=== PATIENT | male | born 1970 | race Caucasian/White ===

== ENCOUNTER 2018-03-31 08:00 | Inpatient (IN) | payer OTHER ==
[2018-04-27 15:07] VITALS: BMI 24.9
[2018-04-28] MEDS ORDERED: GENTAMICIN SO4 80 MG/2 ML VIAL ONE (07:34)
[2018-04-28] MEDS ORDERED: BUPIVACAINE HCL/PF 0.5% (5MG/ML) 10 ML VIAL ONE (07:35)
--- NOTE | 2018-04-28 07:53 | HP ---
History & Physical Update - History History: No Change - Physical Physical: No Change - Assessment Assessment: No Change - Plan Plan: No Change (no change since visit on 04/15/18)
[2018-04-28] MEDS ORDERED: MIDAZOLAM HCL 2 MG/2 ML SINGLE DOSE VIAL ONE ×3 (07:58→13:56)
[2018-04-28] MEDS ORDERED: ROCURONIUM BROMIDE 50 MG/5 ML VIAL ONE ×3 (07:58→11:39)
[2018-04-28] MEDS ORDERED: PROPOFOL 20 ML ONE (07:58)
[2018-04-28] MEDS ORDERED: LIDOCAINE HCL/PF 2% SDV 5ML VIAL ONE (08:00)
[2018-04-28] MEDS ORDERED: THROMBIN (BOVINE) 20,000 UNIT VIAL TP ONE (08:01)
[2018-04-28] MEDS ORDERED: GENTAMICIN SO4 80 MG/2 ML VIAL IVPB ONE (08:30)
[2018-04-28] MEDS ORDERED: ceFAZolin SODIUM 1 GM VIAL ONE ×3 (08:39→20:07)
[2018-04-28] MEDS ORDERED: VANCOMYCIN 1,000 MG VIAL (RESTRICTED TO ID ONLY) ONE (08:39)
[2018-04-28] MEDS ORDERED: ceFAZolin SODIUM 1 GM VIAL IVPB ONE ×2 (08:40→11:59)
[2018-04-28] MEDS ORDERED: LIDOCAINE 1%/EPI 1:100000 (50 ML MULTI DOSE VIAL) INF ONE (08:42)
[2018-04-28] MEDS ORDERED: VANCOMYCIN 1,000 MG VIAL (RESTRICTED TO ID ONLY) IVPB ONE (08:42)
[2018-04-28] MEDS ORDERED: ONDANSETRON 4 MG/2 ML VIAL ONE ×2 (08:56→12:30)
[2018-04-28] MEDS ORDERED: DEXAMETHASONE SOD PHOSPHATE 4 MG/1 ML VIAL ONE ×2 (08:56→12:30)
[2018-04-28] MEDS ORDERED: BACITRACIN 15 GM TUBE TOPICAL OINTMENT ONE (10:54)
[2018-04-28] MEDS ORDERED: ACETAMINOPHEN INJECTION 100 ML IVPB ONE (11:36)
[2018-04-28] MEDS ORDERED: BACITRACIN 50,000 UNITS VIAL TP ONE (12:25)
[2018-04-28] MEDS ORDERED: GLYCOPYRROLATE 0.2 MG/1 ML VIAL ONE (12:29)
[2018-04-28] MEDS ORDERED: NEOSTIGMINE METHYLSULFATE 0.5 MG/ML - 10 ML MDV ONE (13:10)
[2018-04-28] MEDS ORDERED: METOPROLOL TARTRATE 5 MG/5 ML VIAL ONE (13:56)
[2018-04-28] MEDS ORDERED: ONDANSETRON 4 MG/2 ML VIAL IVPUSH PRN (14:05)
[2018-04-28] MEDS ORDERED: DEXAMETHASONE SOD PHOSPHATE 4 MG/1 ML VIAL IVPUSH PRN (14:05)
[2018-04-28] MEDS ORDERED: PROMETHAZINE HCL 25 MG/1 ML VIAL IVPB PRN (14:05)
[2018-04-28] MEDS ORDERED: HYDROmorphone *PCA* 10MG/50ML DISP.SYRIN PCA ONE (14:08)
[2018-04-28] MEDS ORDERED: LACTATED RINGERS SOLUTION 1,000 ML IV SCH (14:15)
[2018-04-28] MEDS ORDERED: diphenhydrAMINE HCL 25 MG CAPSULE (FP) PO PRN (14:21)
[2018-04-28] MEDS: HYDROmorphone *PCA* 10MG/50ML DISP.SYRIN PCA SCH (14:35)
[2018-04-28] MEDS: LACTATED RINGERS SOLUTION 1,000 ML/1,000 ML INFUS.BAG IV SCH (15:00)
--- NOTE | 2018-04-28 15:37 | OP ---
Operative Note - Note: Operative Date: 04/28/18 Pre-Operative Diagnosis: cervical radiculopathy Operation: C3-C4 ACDF, C5-C6 corpectomies with anterior plating and anabaptism of lordosis with peek cage Post-Operative Diagnosis: Same as Pre-op Surgeon: Arturo Mccrary Tower Truck Driver: Luly Cano Anesthesiologist/GRAPHIC EDITOR: Dale Patino Anesthesia: General Estimated Blood Loss (mls): 350 Drains & Tubes with Location: j/p drain right neck Fluid Volume Replaced (mls): 1,200 Operative Report Dictated: Yes
--- NOTE | 2018-04-28 15:42 | SURG ---
Surgery Logistics/Shipper Note Logistics/Shipper: Luly Cano PA-C Date of Service: 04/28/18 Diagnosis: cervical radiculopathy Procedure: C3-C4 ACDF, C5-C6 corpectomies with anterior plating and uatsdin of lordosis with peek cage I was present for the entirety of the operative procedure. For further detail, please refer to operative report. Visit type - Case Type Case Type: Scheduled - Emergency Emergency Visit: No - New patient This patient is new to me today: Yes Date on this admission: 04/28/18
--- NOTE | 2018-04-28 15:43 | OP ---
Operative Note - Note: Operative Date: 04/28/18 Pre-Operative Diagnosis: cervical radiculopathy Operation: C2-C7 laminectomies with muslim of lordosis and posterior fusion with lateral mass intrumentation Post-Operative Diagnosis: Same as Pre-op Surgeon: Arturo Mccrary Manager Ccu: Luly Cano Anesthesiologist/PIT LABORER: Dale Patino Anesthesia: General Estimated Blood Loss (mls): 450 Drains & Tubes with Location: j/p right paravetebral c spine Fluid Volume Replaced (mls): 1,200 Operative Report Dictated: Yes
--- NOTE | 2018-04-28 15:46 | SURG ---
Surgery Assurance Sourcing Manager Note Assurance Sourcing Manager: Luly Cano PA-C Date of Service: 04/28/18 Diagnosis: cervical radiculopathy Procedure: C2-C7 laminectomies with amish of lordosis and posterior fusion with lateral mass intrumentation I was present for the entirety of the operative procedure. For further detail, please refer to operative report. Visit type - Case Type Case Type: Scheduled - Emergency Emergency Visit: No - New patient This patient is new to me today: Yes Date on this admission: 04/28/18
[2018-04-28] MEDS: NICOTINE 21 MG/24 HOURS TOPICAL PATCH TD SCH (17:49)
[2018-04-28] MEDS ORDERED: DEXTROSE 5%-WATER - 50 ML IVPB ONE (20:08)
[2018-04-28] MEDS: CEFAZOLIN 1 GM in DEXTROSE 5%-WATER - 50 ML IVPB SCH (20:19)
[2018-04-28] MEDS: DOCUSATE SODIUM 100 MG CAPSULE (FP) PO SCH (21:44)
[2018-04-28] MEDS: HEPARIN NA (PORCINE) 5,000 UNITS/ML 1ML VIAL SQ SCH (21:44)
[2018-04-28] MEDS ORDERED: ATORVASTATIN CA 20 MG TABLET (FP) PO SCH (22:00)
[2018-04-28] MEDS ORDERED: PATIENT'S OWN MEDICATION (NON-FORMULARY) (Metformin Hcl [Metformin Hcl Er] 500 MG) PO SCH (22:00)
[2018-04-29] MEDS: LACTATED RINGERS SOLUTION 1,000 ML/1,000 ML INFUS.BAG IV SCH (00:56)
[2018-04-29] MEDS ORDERED: HYDROmorphone *PCA* 10MG/50ML DISP.SYRIN PCA ONE (01:08)
[2018-04-29] MEDS: HYDROmorphone *PCA* 10MG/50ML DISP.SYRIN PCA SCH (01:43)
[2018-04-29] MEDS ORDERED: ceFAZolin SODIUM 1 GM VIAL ONE ×2 (03:42→11:45)
[2018-04-29] MEDS ORDERED: DEXTROSE 5%-WATER - 50 ML IVPB ONE ×2 (03:42→11:45)
[2018-04-29] MEDS: CEFAZOLIN 1 GM in DEXTROSE 5%-WATER - 50 ML IVPB SCH ×2 (04:25→12:00)
[2018-04-29] MEDS: HEPARIN NA (PORCINE) 5,000 UNITS/ML 1ML VIAL SQ SCH ×2 (06:19→13:29)
[2018-04-29] MEDS: DOCUSATE SODIUM 100 MG CAPSULE (FP) PO SCH ×2 (06:19→14:01)
[2018-04-29] MEDS ORDERED: metFORMIN HCL 500 MG TABLET (FP) PO SCH (07:00)
[2018-04-29 08:05] LABS: HEMOGLOBIN 10.4 GM/dL (11.7-16.9); MCH 28.2 pg (25.7-33.7); MCHC 32.4 g/dl (32.0-35.9); MEAN CELL VOLUME 86.8 fl (80-96); MEAN PLT VOLUME 9.3 fl (7.5-11.1); PLATELET COUNT 214 K/MM3 (134-434); RBC 3.69 M/mm3 (4.00-5.60); RDW 13.9 % (11.9-15.9); WHITE BLOOD COUNT 19.9 K/mm3 (4.0-10.0)
--- NOTE | 2018-04-29 08:16 | CONSULT ---
Consultation: REQUESTING PROVIDER: BOB Teixeira CONSULT REQUEST: We have been asked to medically evaluate this patient s/p surgery. HISTORY OF PRESENT ILLNESS: Patient is a 45 year old male with a significant past medical history of Fracisco- Parkinson-White syndrome (patient reports having an ablation about 10-15 years ago), borderilne diabetes, HLD and hypertension. Patient is s/p C3-C4 ACDF, C5- C6 corpectomies with anterior plating and catholic of lordosis with peek cage POD #[address] Mccrary. REVIEW OF SYSTEMS: CONSTITUTIONAL: Absent: fever, chills, diaphoresis, generalized weakness, malaise, loss of appetite, weight change HEENT: Absent: rhinorrhea, nasal congestion, throat pain, throat swelling, difficulty swallowing, mouth swelling, ear pain, eye pain, visual changes CARDIOVASCULAR: Absent: chest pain, syncope, palpitations, irregular heart rate, lightheadedness , peripheral edema RESPIRATORY: Absent: cough, shortness of breath, dyspnea with exertion, orthopnea, wheezing, stridor, hemoptysis GASTROINTESTINAL: Absent: abdominal pain, abdominal distension, nausea, vomiting, diarrhea, constipation, melena, hematochezia GENITOURINARY: Absent: dysuria, frequency, urgency, hesitancy, hematuria, flank pain, genital pain MUSCULOSKELETAL: Absent: myalgia, arthralgia, joint swelling, back pain, neck pain SKIN: Absent: rash, itching, pallor HEMATOLOGIC/IMMUNOLOGIC: Absent: easy bleeding, easy bruising, lymphadenopathy, frequent infections ENDOCRINE: Absent: unexplained weight gain, unexplained weight loss, heat intolerance, cold intolerance NEUROLOGIC: Absent: headache, focal weakness or paresthesias, dizziness, unsteady gait, seizure, mental status changes, bladder or bowel incontinence PSYCHIATRIC: Absent: suicidal or homicidal ideation, hallucinations. PHYSICAL EXAMINATION Vital Signs - 24 hr 04/28/18 04/28/18 04/28/18 14:00 14:15 14:30 Temperature 99.9 F H Pulse Rate 105 H 97 H 76 Respiratory 12 12 12 Rate Blood Pressure 153/94 151/87 111/57 L O2 Sat by Pulse 95 97 97 Oximetry (%) 04/28/18 04/28/18 04/28/18 14:35 14:45 15:00 Temperature Pulse Rate 76 88 95 H Respiratory 12 12 20 Rate Blood Pressure 111/57 L 129/85 139/90 O2 Sat by Pulse 99 99 Oximetry (%) 04/28/18 04/28/18 04/28/18 15:15 15:30 17:00 Temperature 98.3 F 98 F Pulse Rate 82 99 H 92 H Respiratory 13 17 20 Rate Blood Pressure 139/78 148/90 162/99 O2 Sat by Pulse 99 99 98 Oximetry (%) 04/28/18 04/28/18 04/28/18 17:07 18:57 21:00 Temperature 98.6 F Pulse Rate 91 H 99 H Respiratory 20 20 Rate Blood Pressure 162/99 152/98 O2 Sat by Pulse 99 Oximetry (%) 04/28/18 04/29/18 04/29/18 22:00 01:56 05:28 Temperature 98.7 F 98.2 F 98.3 F Pulse Rate 91 H 87 87 Respiratory 20 18 18 Rate Blood Pressure 166/88 160/94 153/85 O2 Sat by Pulse Oximetry (%) 04/29/18 05:43 Temperature Pulse Rate 87 Respiratory 18 Rate Blood Pressure 153/85 O2 Sat by Pulse Oximetry (%) GENERAL: Awake, alert, and fully oriented, in no acute distress. HEAD: Normal with no signs of trauma. EYES: Pupils equal, round and reactive to light, extraocular movements intact, sclera anicteric, conjunctiva clear. No lid lag. EARS, NOSE, THROAT: Ears normal, nares patent, oropharynx clear without exudates. Moist mucous membranes. NECK: s/p C3-C4 ACDF, C5-C6 corpectomies with anterior plating and catholic of lordosis with peek cage LUNGS: Breath sounds equal, diminished bilaterally, tolerating room air HEART: Regular rate and rhythm ABDOMEN: Soft, nontender, not distended, normoactive bowel sounds, no guarding, no rebound, no masses. No hepatomegaly or splenomegaly. MUSCULOSKELETAL: Normal range of motion at all joints. No bony deformities or tenderness. No CVA tenderness. UPPER EXTREMITIES: No peripheral edema. LOWER EXTREMITIES: No peripheral edema. NEUROLOGICAL: Normal speech. gait nor observed. PSYCHIATRIC: Cooperative. Good eye contact. flat affect SKIN: posterior surgical pastor drainage with apx 30cc of sero sang drainage. posterior neck dressing c/d/i. anterior drain removed by surgical PA this a.m. Laboratory Results - last 24 hr 04/28/18 04/28/18 04/28/18 06:38 06:43 17:30 WBC RBC Hgb Hct MCV MCH MCHC RDW Plt Count MPV POC Glucometer 166 195 Blood Type A POSITIVE Antibody Screen Negative 04/28/18 04/29/18 04/29/18 20:49 06:23 07:00 WBC 19.9 H RBC 3.69 L Hgb 10.4 L Hct 32.0 L D MCV 86.8 MCH 28.2 MCHC 32.4 RDW 13.9 Plt Count 214 D MPV 9.3 POC Glucometer 203 185 Blood Type Antibody Screen Active Medications Generic Name Dose Route Start Last Admin Trade Name Freq PRN Reason Stop Dose Admin Atorvastatin Calcium 20 mg 04/28/18 22:00 04/28/18 21:44 Lipitor - PO 20 mg HS CINDI Administration Dexamethasone Sodium Phosphate 4 mg 04/28/18 14:05 Decadron Injection - IVPUSH ONCE PRN NAUSEA AND/OR VOMITING Diphenhydramine HCl 12.5 mg 04/28/18 14:05 Benadryl Injection - IVPUSH ONCE PRN FOR ITCHING Diphenhydramine HCl 25 mg 04/28/18 14:21 Benadryl - PO Q6H PRN FOR ITCHING Docusate Sodium 100 mg 04/28/18 22:00 04/29/18 06:19 Colace - PO 100 mg TID CINDI Administration Ferrous Sulfate 325 mg 04/29/18 10:00 Feosol - PO DAILY CINDI Folic Acid 1 mg 04/29/18 10:00 Folic Acid - PO DAILY CINDI Heparin Sodium (Porcine) 5,000 unit 04/28/18 22:00 04/29/18 06:19 Heparin - SQ 5,000 unit TID CINDI Administration Hydromorphone HCl 0 mg 04/28/18 14:15 04/29/18 01:43 Dilaudid Hand Compositor - BEATER AND PULPER FEEDER 05/05/18 14:05 10 mg BEATER AND PULPER FEEDER CINDI Administration Protocol Cefazolin Sodium 1 gm/ 50 mls @ 100 mls/hr 04/28/18 20:30 04/29/18 04:25 Dextrose IVPB 100 mls/hr Q8H CINDI Administration Lactated Ringer's 1,000 ml in 1,000 mls @ 100 mls/hr 04/28/18 14:30 04/29/18 00:56 Lactated Ringers Solution IV 100 mls/hr ASDIR CINDI Administration Insulin Aspart 1 vial 04/29/18 11:00 Novolog Vial Sliding Scale - SQ ACHS CINDI Protocol Lorazepam 1 mg 04/28/18 14:44 04/28/18 14:40 Ativan Injection - IVPUSH 1 mg ONCE ONE Administration Losartan Potassium 50 mg 04/29/18 10:00 Cozaar - PO DAILY CINDI Metformin HCl 500 mg 04/29/18 07:00 04/29/18 06:25 Glucophage - PO 500 mg BID@0700,1630 CINDI Administration Nicotine 21 mg 04/28/18 15:00 04/28/18 17:49 Nicoderm Patch - TD 21 mg DAILY CINDI Administration Ondansetron HCl 4 mg 04/28/18 14:05 Zofran Injection IVPUSH Q4H PRN NAUSEA AND/OR VOMITING Promethazine HCl 12.5 mg 04/28/18 14:05 Phenergan Injection - IVPB Q6H PRN NAUSEA AND/OR VOMITING ASSESSMENT/PLAN: Patient is a 45 year old male with a significant past medical history of Fracisco- Parkinson-White syndrome (patient 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 Patient is s/p C3-C4 ACDF, C5-C6 corpectomies with anterior plating and catholic of lordosis with peek cage POD #[address] Mccrary. Surgery: Cervical surgery, POD #1 Monitor pain, currently on BEATER AND PULPER FEEDER pump, tylenol 1000mg iv x 1 for soreness, discomfort. Post surgical protocol SCDs Pain management Bowel regimen Monitor swallowing Monitor vitals, labs Zofran for nausea, vomiting Post op antibiotics of cefazolin q8 patient appears comfortable, pain controlled, c/o of "soreness" on surgical site and pastor drain. will order tylenol IV x 1 Endocrine: Elevated BGMs, awaiting hmga1c. on metformin BID. added novolog coverage. Card: Fracisco Parkinson White Syndrome, history. Hypertension: BP elevated last night, on Cozaar. monitor bp Psyche Current daily smoker: on nicotine patch fen on LR @ 100 monitor electrolytes diabetic diet, may need soft diet if experiences swallowing difficulty prophy scds bowel regimen incentive spirometer Dispo: We will continue to follow the patient. Thank you for this consultative opportunity. Visit type - Emergency Visit Emergency Visit: Yes ED Registration Date: 04/28/18 Care time: The patient presented to the Emergency Department on the above date and was hospitalized for further evaluation of their emergent condition. - New Patient This patient is new to me today: Yes Date on this admission: 04/29/18 - Critical Care Critical Care patient: No
[2018-04-29 08:30] LABS: ANION GAP 15 MMOL/L (8-16); BLOOD UREA NITROGEN 15 mg/dL (7-18); CALCIUM 8.8 mg/dL (8.5-10.1); CHLORIDE 101 mmol/L (98-107); CO2 24 mmol/L (21-32); CREATININE 0.9 mg/dL (0.55-1.3); GLUCOSE,RANDOM 146 mg/dL (74-106); POTASSIUM 4.1 mmol/L (3.5-5.1); SODIUM 140 mmol/L (136-145)
[2018-04-29] MEDS ORDERED: ACETAMINOPHEN 1000 MG/100 ML VIAL (NON FORMULARY) IVPB ONE (08:49)
--- NOTE | 2018-04-29 09:09 | PN ---
Progress Note (short form) - Note Progress Note: POD #1 Alert. C/o incisional tenderness. Pain management via FRANCHISE SALES REPRESENTATIVE. Ambulating hallways unassisted. Patient states that he wants to go home. Patient's RN informs me that he is willing to sign out AMA if he doesn't get his way. He is voiding spontaneously. Tolerating PO with minimal discomfort. Last Vital Signs Temp Pulse Resp BP Pulse Ox 98.3 F 87 18 153/85 99 04/29/18 05:28 04/29/18 05:43 04/29/18 05:43 04/29/18 05:43 04/28/18 21:00 CBC, BMP 04/29/18 07:00 04/29/18 07:00 PHOEBE OUTPUT 04/28/18 04/28/18 04/29/18 18:44 22:31 05:28 Anterior Neck 20 30 40 Back 40 100 70 PE General: nad Neck: Soft. Supple. trach midline. Mild soft tissue swelling. PHOEBE on bulb suction (serosang). Dressing c/d/i. Back: Dressing c/d/i. PHOEBE on bulb suction (serosang) Neuro: GMNVI all extremities LE: SCDs bilat. No calf tenderness. A/P 48 yo male s/p C2-C7 laminectomies with mormon of lordosis and posterior fusion with lateral mass intrumentation. Patient is adamant about going home today. I explained to patient that he just had surgery and before we feel comfortable discharging him we want to be sure that we can manage his post- operative pain with oral pain medication. He has had chronic pain prior to surgery for which he was prescribed Fentanyl patches by his PCP. Plan for today after speaking with Dr. Mccrary: 1. Anterior drain dc'd on morning rounds 2. Discontinue FRANCHISE SALES REPRESENTATIVE after Dr. Stefano Copeland / Pain Management sees patient and makes his recommendations for PO pain management for out-patient care. Spoke with him this morning and he is on his way to see patient this morning. 3. Will come back later today and assess posterior PHOEBE and will remove today prior to dc IF he goes home today. 4. Cont to ambulate 5. Incentive spirometer 6. Cont to wear your cervical collar 23/24hrs/day (may remove while eating or bathing)
[2018-04-29] MEDS ORDERED: LOSARTAN POTASSIUM 50 MG TABLET (FP) PO SCH (10:00)
[2018-04-29] MEDS ORDERED: FOLIC ACID 1 MG TABLET (FP) PO SCH (10:00)
[2018-04-29] MEDS ORDERED: FERROUS SO4 325 MG TABLET (FP) PO SCH (10:00)
--- NOTE | 2018-04-29 10:06 | CONSULT ---
Consult Consult Specialty:: Pain Management - History of Present Illness Chief Complaint: Neck pain s/p Cervical Fusion History of Present Illness: 48 yr old male with neck pain s/p cervical fusion. Pain 05/06. He was having [id number] patch 100 mcg/hr q48 -prior to surgery . SENIOR TEST ENGINEER was d/c. - History Source History Provided By: Patient Limitations to Obtaining History: No Limitations - Alcohol/Substance Use Hx Alcohol Use: Yes (rarely) - Smoking History Smoking history: Current every day smoker Have you smoked in the past 12 months: Yes Aproximately how many cigarettes per day: 10 Home Medications - Allergies Allergies/Adverse Reactions: Allergies Allergy/AdvReac Type Severity Reaction Status Date / Time No Known Allergies Allergy Verified 04/28/18 07:04 - Home Medications Home Medications: Ambulatory Orders Atorvastatin Ca [Lipitor] 20 mg PO HS 04/27/18 FENTANYL 75mcg PATCH [DURAGESIC 75mcg PATCH -] 1 each TD Q72H 04/27/18 Losartan Potassium 50 mg PO DAILY 04/27/18 Metformin HCl [Metformin HCl ER] 500 mg PO BID 04/27/18 Review of Systems - Review of Systems Constitutional: reports: No Symptoms Eyes: reports: No Symptoms HENT: reports: No Symptoms Neck: reports: No Symptoms Cardiovascular: reports: No Symptoms Respiratory: reports: No Symptoms Gastrointestinal: reports: No Symptoms Genitourinary: reports: No Symptoms Musculoskeletal: reports: Other (Neck apin) Neurological: reports: No Symptoms Hematology/Lymphatic: reports: No Symptoms Psychiatric: reports: No Symptoms Pain Intensity: 10 Physical Exam Vital Signs: Vital Signs Temperature 98.3 F 04/29/18 05:28 Pulse Rate 87 04/29/18 05:43 Respiratory Rate 18 04/29/18 05:43 Blood Pressure 153/85 04/29/18 05:43 O2 Sat by Pulse Oximetry (%) 99 04/28/18 21:00 Constitutional: Yes: Well Nourished Eyes: Yes: WNL HENT: Yes: WNL Neck: Yes: WNL Cardiovascular: Yes: WNL Respiratory: Yes: WNL Gastrointestinal: Yes: WNL (Cervical fusion . Phili collar +) Edema: No Neurological: Yes: WNL ...Motor Strength: WNL Psychiatric: Yes: WNL Labs: CBC, BMP 04/29/18 07:00 04/29/18 07:00 Problem List - Problems (1) Post-op pain Code(s): G89.18 - OTHER ACUTE POSTPROCEDURAL PAIN Assessment/Plan Discussed in detail and answered all the questions. D/C SENIOR TEST ENGINEER Dilaudid 2 mg PO q6 PRN Neuron 300 mg PO TID Zanflex 2 mg po TID After discharge he will f/u with his pain physician. Thanks
[2018-04-29] MEDS ORDERED: CYCLOBENZAPRINE HCL 10 MG TABLET (FP) PO PRN (10:08)
[2018-04-29] MEDS: NICOTINE 21 MG/24 HOURS TOPICAL PATCH TD SCH (10:28)
[2018-04-29] MEDS ORDERED: GABAPENTIN 300 MG CAPSULE (FP) PO SCH ×2 (10:45→14:00)
[2018-04-29] MEDS ORDERED: INSULIN SLIDING SCALE (NOVOLOG) 1 VIAL SQ SCH (11:00)
[2018-04-29] MEDS ORDERED: HYDROmorphone HCL 2 MG TABLET PO SCH (12:45)
--- NOTE | 2018-04-29 13:11 | PN ---
Progress Note (short form) - Note Progress Note: Anesthesia Pt seen and examined S:alert and awake mild pain O: Vital Signs Temperature 98.3 F 04/29/18 05:28 Pulse Rate 87 04/29/18 05:43 Respiratory Rate 18 04/29/18 05:43 Blood Pressure 153/85 04/29/18 05:43 O2 Sat by Pulse Oximetry (%) 99 04/28/18 21:00 CBC, BMP 04/29/18 07:00 04/29/18 07:00 A/P Current Active Problems s/p C3-C7 cervical spine surgery including ACDF Doing well post op CONSUMER MARKETING ANALYST stopped PO pain meds for pain prn Continue current care Baldemar Fernandez MD
[2018-04-29] MEDS: GABAPENTIN 300 MG CAPSULE (FP) PO SCH ×2 (13:23→14:04)
[2018-04-29 13:47] VITALS: BP 158/83; PULSE 72; TEMP 98.4
== END 2018-04-29 14:20 | disposition home or self-care (01) | DRG 455 ==
LOC: EDSTATUS 08:00 → JSAMEDAYSX 04-28 05:20 → J8W 04-28 15:53
PROVIDERS: ADMIT Internal Medicine; ATTEND Neurological Surgery
PROC: 0RG2071 Fusion of 2 or more Cervical Vertebral Joints with Autologous Tissue Substitute, Posterior Approach, Posterior Column, Open Approach (ICD-10-PCS; 2018-04-28)
PROC: 0RG20A0 Fusion of 2 or more Cervical Vertebral Joints with Interbody Fusion Device, Anterior Approach, Anterior Column, Open Approach (ICD-10-PCS; principal; 2018-04-28 08:00)
DX: M47.12 Other spondylosis with myelopathy, cervical region (principal); M54.12 Radiculopathy, cervical region; M40.50 Lordosis, unspecified, site unspecified; E78.5 Hyperlipidemia, unspecified; I10 Essential (primary) hypertension; R73.03 Prediabetes; I45.6 Pre-excitation syndrome
CPT/HCPCS: 36415; 72125-TC; 80048; 82962; 83036; 85027; 86850; 86900; 86901; 94010; 94760; 97116-GP; 97161-GP; J0131; J1644

== ENCOUNTER 2018-06-19 23:47 | Emergency (ER) | payer OTHER ==
[2018-06-20 00:11] VITALS: TEMP 98.3; BMI 23.7
--- NOTE | 2018-06-20 00:33 | PDOC ---
History of Present Illness - General Chief Complaint: Injury Stated Complaint: FALL/INJURY Time Seen by Provider: 06/20/18 00:24 History Source: Patient Exam Limitations: No Limitations - History of Present Illness Initial Comments: 06/20/18 01:29 Best Contact:[phone] PCP:ELLA Mccrary [phone] Pmhx:DMType 2 Pshx:04/28/2018: C3-C4 ACDF, C5-C6 corpectomies with anterior plating and confucianism of lordosis with peak age Allergies:NKDA FH:0 Social Hx: Cigarettes/[id number]/[id number] Alcohol/ 0 Drugs/0 48-year-old male presents to the ER complaining of left sided posterior neck pain and posterior headache 2 hours. Patient states while showering this evening, he slipped and fell back. Patient states he struck the back of his head against the shower door and twisted his neck. Patient denies headache, dizziness, lightheadedness, facial pains, extremity numbness or tingling sensation, chest pain, shortness of breath, abdominal pains, flank pains, urinary symptoms, bladder or bowel dysfunction. Patient states he's able to ambulate without difficulties. Pain is described as 8/10 sharp nonradiating intermittent discomfort. Patient states he called his neurosurgeon and was advised to come to the emergency department for evaluation and pain medication. Past History - Past Medical History Allergies/Adverse Reactions: Allergies Allergy/AdvReac Type Severity Reaction Status Date / Time No Known Allergies Allergy Verified 06/19/18 23:58 Home Medications: Ambulatory Orders Atorvastatin Ca [Lipitor] 20 mg PO HS 04/27/18 Losartan Potassium 50 mg PO DAILY 04/27/18 Metformin HCl [Metformin HCl ER] 500 mg PO BID 04/27/18 Gabapentin [Neurontin] 300 mg PO TID #42 capsule MDD 3 04/29/18 Tizanidine HCl [Zanaflex] 2 mg PO TID #21 tablet 04/29/18 Anemia: No Asthma: No Cancer: No Cardiac Disorders: No (wpw-"no longer present-as per stna") CVA: No COPD: No CHF: No Dementia: No Diabetes: Yes GI Disorders: No Disorders: No HTN: Yes Hypercholesterolemia: Yes Liver Disease: No Seizures: No Thyroid Disease: No - Surgical History Appendectomy: Yes Orthopedic Surgery: Yes (LT knee arhtroscopy x3, RT knee arthroscopy x2) - Immunization History Td Vaccination: Yes Immunization Up to Date: Yes - Suicide/Smoking/Psychosocial Hx Smoking Status: No Smoking History: Current every day smoker Have you smoked in the past 12 months: Yes Number of Cigarettes Smoked Daily: 10 Information on smoking cessation initiated: No 'Breaking Loose' booklet given: 04/28/18 Hx Alcohol Use: No Drug/Substance Use Hx: No Substance Use Type: Alcohol Hx Substance Use Treatment: No Review of Systems - Review of Systems Able to Perform ROS?: Yes Comments:: 06/20/18 02:31 CONSTITUTIONAL: Absent: fever, chills, diaphoresis, generalized weakness, malaise, loss of appetite HEENT: Absent: rhinorrhea, nasal congestion, throat pain, throat swelling, difficulty swallowing, mouth swelling, ear pain, eye pain, visual Changes CARDIOVASCULAR: Absent: chest pain, loss of consciousness, palpitations, irregular heart rate, peripheral edema RESPIRATORY: Absent: cough, shortness of breath, dyspnea with exertion, orthopnea, wheezing, stridor, hemoptysis GASTROINTESTINAL: Absent: abdominal pain, abdominal distension, nausea, vomiting, diarrhea, constipation, melena, hematochezia GENITOURINARY: Absent: dysuria, frequency, urgency, hesitancy, hematuria, flank pain, genital pain MUSCULOSKELETAL: Left sided posterior neck pain Absent: myalgia, arthralgia, joint swelling SKIN: Absent: rash, itching, pallor HEMATOLOGIC/IMMUNOLOGIC: Absent: easy bleeding, easy bruising, lymphadenopathy, frequent infections ENDOCRINE: Absent: unexplained weight gain, unexplained weight loss, heat intolerance, cold intolerance NEUROLOGIC: +posterior gutierrez Absent: focal weakness or paresthesias, dizziness, unsteady gait, seizure, mental status changes, bladder or bowel incontinence Is the patient limited Azeri proficient: No *Physical Exam - Vital Signs Last Vital Signs Temp Pulse Resp BP Pulse Ox 98.3 F 123 H 18 143/91 98 06/19/18 23:58 06/19/18 23:58 06/19/18 23:58 06/19/18 23:58 06/19/18 23:58 - Physical Exam Comments: 06/20/18 02:31 GENERAL: Well developed, well nourished. Awake and alert. No acute distress. HEENT: Normocephalic, atraumatic. PERRLA, EOMI. No conjunctival pallor. Sclera are non- icteric. Moist mucous membranes. Oropharynx is clear. NECK: Supple. Full ROM. No JVD. Carotid pulses 2+ and symmetric, without bruits. No thyromegaly. No lymphadenopathy. CARDIOVASCULAR: Regular rate and rhythm. No murmurs, rubs, or gallops. Distal pulses are 2+ and symmetric. PULMONARY: No evidence of respiratory distress. Lungs clear to auscultation bilaterally. No wheezing, rales or rhonchi. ABDOMINAL: Soft. Non-tender. Non-distended. No rebound or guarding. No organomegaly. Normoactive bowel sounds. MUSCULOSKELETAL vertical healed scar to posterior neck left sided pain to neck on palp neg swelling Normal range of motion at all joints. No bony deformities or tenderness. No CVA tenderness. EXTREMITIES: No cyanosis. No clubbing. No edema. No calf tenderness. SKIN: Warm and dry. Normal capillary refill. No rashes. No jaundice. NEUROLOGICAL: Alert, awake, appropriate. Cranial nerves 2-12 intact. No deficits to light touch and temperature in face, upper extremities and lower extremities. No motor deficits in the in face, upper extremities and lower extremities. Normoreflexic in the upper and lower extremities. Normal speech. Toes are down- going bilaterally. Gait is normal without ataxia. ED Treatment Course - RADIOLOGY Radiograph Interpretation: 06/20/18 02:30 CAT scan C-spine without contrast: Laminectomy and cervical changes in the C- spine with no acute fracture. CAT scan head without contrast: Normal head Progress Note - Progress Note Progress Note: 0231hrs: Pt is completely pain free after morphine iv I asked the patient numerous times what other pain medications he's prescribed or taken since the dilaudid 2 mg by mouth which he ran out allegedly since the end of April. Patient adamantly denies having or taking his dilaudid since last month. I I-stopped the patient: -06/15/2018 Fentanyl 100 g per hour patch: 15 day supply -05/22/2018: Fentanyl 100 g per hour patch: 30 day supply -05/08/2018: Hydromorphone 2 mg tab quantity 42 -05/04/2018: Fentanyl 75 g per hour patch quantity 30 day supply -04/29/2018: Hydromorphone 2 mg tablets: Quantity 30 Patient's been taking fentanyl patches dating back to 2013 I spoke with the patient in depth regarding his narcotic history. Patient states he's been picking up the fentanyl patches but has not been using it. Patient states she just keeps on picking up the medication to save for a day that he really needs it. Patient insists that his neurosurgeon sent him to the emergency department for evaluation/narcotics I called the neurosurgeon, the service states the neurosurgeon's away and is currently on the plane back to [place]. *DC/Admit/Observation/Transfer Diagnosis at time of Disposition: Neck pain Closed head injury Qualifiers: Encounter type: initial encounter Qualified Code(s): S09.90XA - Unspecified injury of head, initial encounter - Discharge Dispostion Disposition: HOME Condition at time of disposition: Stable Decision to Admit order: No - Referrals Referrals: Edenilson Pacheco MD [Primary Care Provider] - Arturo Mccrary MD, FAANS [Staff Physician] - - Patient Instructions Printed Discharge Instructions: DI for Closed Head Injury, DI for Neck Pain Additional Instructions: Patient to follow with Dr. Mccrary this Friday or Friday. Take pain medications sparingly Return to the Er for severe/persistent/worsening symptoms - Post Discharge Activity
[2018-06-20] MEDS ORDERED: SODIUM CHLORIDE 500 ML IV STA (01:46)
[2018-06-20] MEDS ORDERED: ONDANSETRON 4 MG/2 ML VIAL IVPUSH ONE (01:46)
[2018-06-20] MEDS ORDERED: morphine CARPU-JECT 4 MG/1 ML DISP.SYRIN IVPUSH ONE (01:46)
[2018-06-20] MEDS ORDERED: morphine SULFATE 4 MG/ML VIAL ONE (01:53)
[2018-06-20] MEDS ORDERED: ONDANSETRON 4 MG/2 ML VIAL ONE (01:54)
[2018-06-20 02:34] VITALS: BP 148/88; PULSE 103
== END 2018-06-20 03:33 | disposition home or self-care (01) ==
LOC: JER 23:47
PROC: 3E033NZ Introduction of Analgesics, Hypnotics, Sedatives into Peripheral Vein, Percutaneous Approach (ICD-10-PCS; principal; 2018-06-19)
PROC: 3E033GC Introduction of Other Therapeutic Substance into Peripheral Vein, Percutaneous Approach (ICD-10-PCS; 2018-06-19)
DX: S09.8XXA Other specified injuries of head, initial encounter (principal); R51 Headache; M54.2 Cervicalgia; W18.2XXA Fall in (into) shower or empty bathtub, initial encounter; Y93.E1 Activity, personal bathing and showering; Y92.031 Bathroom in apartment as the place of occurrence of the external cause; Y99.8 Other external cause status; I10 Essential (primary) hypertension; E78.00 Pure hypercholesterolemia, unspecified; E11.9 Type 2 diabetes mellitus without complications; Z79.84 Long term (current) use of oral hypoglycemic drugs; Z98.890 Other specified postprocedural states
CPT/HCPCS: 70450-TC; 72125-TC; 99284-25

== ENCOUNTER 2019-01-04 00:24 | Emergency (ER) | payer OTHER | END 2019-01-04 03:05 | disposition left against medical advice (07) | LOC: FER 00:24 ==

== ENCOUNTER 2019-08-12 11:32 | Emergency (ER) | payer OTHER ==
--- NOTE | 2019-08-12 11:50 | PDOC ---
History of Present Illness - General Chief Complaint: Laceration Stated Complaint: LACERATION TO BACK OF HEAD AND RIGHT ABDOMINAL WAL Time Seen by Provider: 08/12/19 11:43 History Source: Patient Exam Limitations: No Limitations - History of Present Illness Initial Comments: HPI: 49 y/o male presenting to [facility] from the clinic of Dr. Delatorre for evaluation of an injury to his head and the right side of his abdomen. Pt reports a shelf fell on his head and a decorative bowel fell off the shelf and cut his abdomen. Incident occurred approx. 2 hours prior to arrival. Denies LOC. Not on AC. Last Tetanus shot 6 years ago. [place] [employer] Search Reference # [id number] Rx Written Rx Dispensed Drug Quantity Days Supply Prescriber Name 08/08/2019 08/09/2019 fentanyl 50 mcg/hr patch 3 30 Edenilson Pacheco MD 07/22/2019 07/26/2019 fentanyl 75 mcg/hr patch 15 30 Edenilson Pacheco MD 07/14/2019 07/14/2019 fentanyl 100 mcg/hr patch 10 30 Edenilson Pacheco MD 07/02/2019 07/08/2019 fentanyl 50 mcg/hr patch 15 30 Zislis, Augustus 06/18/2019 06/18/2019 fentanyl 75 mcg/hr patch 15 30 Edenilson Pacheco MD 06/18/2019 06/18/2019 endocet 10-325 mg tablet 90 30 Edenilson Pacheco MD 06/07/2019 06/14/2019 fentanyl 50 mcg/hr patch 15 30 Jefe Reeves 05/06/2019 05/06/2019 fentanyl 12 mcg/hr patch 10 20 Jefe Reeves 05/06/2019 05/06/2019 fentanyl 50 mcg/hr patch 15 30 Jefe Reeves 04/27/2019 04/29/2019 fentanyl 75 mcg/hr patch 15 30 Jefe Reeves 04/01/2019 04/02/2019 fentanyl 75 mcg/hr patch 15 30 Jefe Reeves 04/01/2019 04/02/2019 fentanyl 12 mcg/hr patch 10 20 Jefe Reeves 03/22/2019 03/22/2019 fentanyl 100 mcg/hr patch 5 10 Jefe Reeves 03/09/2019 03/09/2019 fentanyl 50 mcg/hr patch 20 30 ReevesJefe 02/23/2019 02/24/2019 fentanyl 100 mcg/hr patch 5 15 Jefe Reeves 02/12/2019 02/12/2019 fentanyl 75 mcg/hr patch 10 30 Leandro Jefe Kirby 02/12/2019 02/12/2019 fentanyl 50 mcg/hr patch 10 30 Jefe Reeves 01/18/2019 01/18/2019 fentanyl 100 mcg/hr patch 10 30 Jefe Reeves 01/04/2019 01/04/2019 fentanyl 25 mcg/hr patch 5 15 Jefe Reeves 01/04/2019 01/04/2019 fentanyl 100 mcg/hr patch 5 15 Jefe Reeves 01/04/2019 01/04/2019 oxycodone-acetaminophen 5-325 mg tab 15 4 [facility] 12/16/2018 12/17/2018 fentanyl 75 mcg/hr patch 20 30 Jefe Reeves 11/27/2018 12/02/2018 fentanyl 50 mcg/hr patch 10 30 Jefe Reeves 11/26/2018 11/27/2018 fentanyl 100 mcg/hr patch 10 30 Jefe Reeves 11/03/2018 11/05/2018 fentanyl 25 mcg/hr patch 10 30 Jefe Reeves 11/03/2018 11/05/2018 fentanyl 75 mcg/hr patch 20 30 Jefe Reeves 10/28/2018 10/29/2018 fentanyl 100 mcg/hr patch 10 30 Jefe Reeves 10/28/2018 10/29/2018 fentanyl 50 mcg/hr patch 10 30 Jefe Reeves 10/07/2018 10/08/2018 fentanyl 50 mcg/hr patch 10 30 Jefe Reeves 10/07/2018 10/08/2018 fentanyl 100 mcg/hr patch 10 30 Jefe Reeves Patient Name: Heath Callejas Date: 1970 Address: [place] [address] [place] [address] Sex: Male Rx Written Rx Dispensed Drug Quantity Days Supply Prescriber Name 08/05/2019 08/05/2019 fentanyl 100 mcg/hr patch 10 30 Edenilson Pacheco MD 07/07/2019 07/08/2019 fentanyl 75 mcg/hr patch 10 30 Edenilson Pacheco MD 06/29/2019 06/29/2019 fentanyl 100 mcg/hr patch 10 30 Edenilson Pacheco MD 06/29/2019 06/29/2019 clonazepam 1 mg tablet 90 30 Edenilson Pacheco MD Patient Name: Heath Callejas Date: 1970 Address: [address] [place] [address] Sex: Male Rx Written Rx Dispensed Drug Quantity Days Supply Prescriber Name 07/29/2019 07/29/2019 fentanyl 50 mcg/hr patch 15 60 Jefe Reeves 06/07/2019 06/11/2019 oxycodone-acetaminophen 10-325 mg tab 60 20 Edenilson Pacheco MD 06/07/2019 06/07/2019 fentanyl 50 mcg/hr patch 15 30 Edenilson Pacheco MD 05/31/2019 06/07/2019 fentanyl 75 mcg/hr patch 15 30 Edenilson Pacheco MD 05/26/2019 05/26/2019 fentanyl 100 mcg/hr patch 10 30 Edenilson Pacheco MD 05/11/2019 05/17/2019 fentanyl 75 mcg/hr patch 10 30 Edenilson Pacheco MD 05/07/2019 05/14/2019 oxycodone-acetaminophen 5-325 mg tablet 32 8 Nikhil Ovalles 05/14/2019 05/14/2019 oxycodone-acetaminophen 5-325 mg tablet 12 3 Nikhil Ovalles 04/26/2019 04/26/2019 fentanyl 100 mcg/hr patch 10 30 Edenilson Pacheco MD 04/22/2019 04/22/2019 hydrocodone-acetaminophen 5-325 mg tablet 15 4 Nikhil Ovalles 04/16/2019 04/20/2019 fentanyl 75 mcg/hr patch 10 30 Edenilson Pacheco MD 04/16/2019 04/16/2019 fentanyl 75 mcg/hr patch 10 30 Edenilson Pacheco MD 04/09/2019 04/10/2019 fentanyl 50 mcg/hr patch 15 30 Edenilson Pacheco MD 04/09/2019 04/10/2019 oxycodone-acetaminophen 10-325 mg tab 60 20 Edenilson Pacheco MD 03/26/2019 03/26/2019 fentanyl 100 mcg/hr patch 5 12 Jefe Reeves 03/15/2019 03/16/2019 fentanyl 100 mcg/hr patch 5 14 Jefe Reeves 03/01/2019 03/01/2019 fentanyl 75 mcg/hr patch 10 30 Jefe Reeves 03/01/2019 03/01/2019 fentanyl 50 mcg/hr patch 10 30 Jefe Reeves 02/05/2019 02/05/2019 hydrocodone-acetaminophen 7.5-300 mg tablet 12 2 Josr Nikhil Jose 02/04/2019 02/04/2019 fentanyl 75 mcg/hr patch 10 30 Jefe Reeves 02/04/2019 02/04/2019 fentanyl 50 mcg/hr patch 10 30 Jefe Reeves 01/25/2019 01/25/2019 fentanyl 100 mcg/hr patch 10 30 Jefe Reeves 01/11/2019 01/12/2019 fentanyl 75 mcg/hr patch 10 30 Jefe Reeves 01/11/2019 01/12/2019 fentanyl 50 mcg/hr patch 10 30 Jefe Reeves 12/28/2018 12/29/2018 fentanyl 100 mcg/hr patch 5 14 Jefe Reeves 12/28/2018 12/28/2018 fentanyl 50 mcg/hr patch 5 14 Jefe Reeves 12/07/2018 12/09/2018 fentanyl 75 mcg/hr patch 20 30 Jefe Reeves 12/02/2018 12/04/2018 diazepam 10 mg tablet 1 1 Arturo Mccrary F 11/23/2018 11/24/2018 lorazepam 1 mg tablet 90 30 Edenilson Pacheco MD 11/23/2018 11/24/2018 oxycodone-acetaminophen 10-325 mg tab 90 30 Edenilson Pacheco MD 11/16/2018 11/16/2018 fentanyl 75 mcg/hr patch 20 30 Jefe Reeves 10/23/2018 10/26/2018 fentanyl 25 mcg/hr patch 20 30 Edenilson Pacheco MD 10/23/2018 10/23/2018 fentanyl 100 mcg/hr patch 10 30 Edenilson Pacheco MD 10/02/2018 10/12/2018 fentanyl 100 mcg/hr patch 10 30 Edenilson Pacheco MD 10/02/2018 10/12/2018 fentanyl 25 mcg/hr patch 10 30 Edenilson Pacheco MD 10/02/2018 10/03/2018 fentanyl 25 mcg/hr patch 10 30 Edenilson Pacheco MD 10/02/2018 10/03/2018 fentanyl 100 mcg/hr patch 10 30 Edenilson Pacheco MD 09/23/2018 09/25/2018 fentanyl 75 mcg/hr patch 20 20 Leandro Jefe Kirby 09/18/2018 09/19/2018 fentanyl 75 mcg/hr patch 10 15 Jefe Reeves 09/10/2018 09/11/2018 fentanyl 100 mcg/hr patch 10 30 Jefe Reeves 09/10/2018 09/11/2018 fentanyl 50 mcg/hr patch 10 30 Jefe Reeves 09/07/2018 09/07/2018 fentanyl 100 mcg/hr patch 7 21 Edenilson Pacheco MD 08/28/2018 08/28/2018 fentanyl 75 mcg/hr patch 20 30 Edenilson Pacheco MD Occupation: - [employer] Family Hx: - Father had h/o AAA Medical Hx: - Smoking use - Cervical neck surgery - Diabetes - WPW - HTN - HLD Review of Systems: In addition to that documented in the HPI above, the additional ROS was obtained : Constitutional- Denies fevers or chills ENMT- Denies sore throat CV- Denies chest pain Resp- Denies SOB GI- Denies vomiting or diarrhea Neuro- Denies LOC or difficulty walking Physical Examination: Vital signs and nursing notes reviewed. Constitutional- Well-developed, well-nourished adult male in no acute distress or obvious discomfort. Observed ambulating unassisted into the department without obvious difficulty. Examined sitting upright on edge of hospital bed. Answered all questions appropriately and completely. Head- Normocephalic. Approx. 3cm linear superficial abrasion to occiput. No active bleeding or discharge. Eyes- Sclerae white. Ears- Hearing grossly intact. Nose- No nasal discharge. Neck- Supple, trachea is midline. Cardiovascular / Chest- Regular rate and regular rhythm. No murmur, rubs, clicks , or gallops. Peripheral pulses- radial pulses full. Respiratory- Breathing unlabored. Equal chest rise and fall. Clear to auscultation bilaterally. No stridor, no wheezing, no rhonchi. Gastrointestinal- abdomen is soft, non-tender, non-distended. Approx. 2cm linear partial thickness laceration extending into the superficial fascia in the LRQ. Full depth of wound explored and no foreign body noted. No bleeding or discharge. Neuro- Alert and oriented x4. Moving all four extremities spontaneously. Skin- [place], warm, and dry. Psych- Affect- appropriate. Mood- normal. Speech was non-labored, non- pressured. MDM: 49 y/o male presenting with injury to head and right side of abdomen. Afebrile. Vitals unremarkable for hypotension or tachycardia. Physical exam as described above. Bacitracin applied to superficial abrasion. Dermabond and steristrips used to close the abdominal wall. No indication for tetanus. 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") CVA: No COPD: No CHF: No Dementia: No Diabetes: Yes GI Disorders: No Disorders: No HTN: Yes Hypercholesterolemia: Yes Liver Disease: No Seizures: No Thyroid Disease: No - Surgical History Appendectomy: Yes Orthopedic Surgery: Yes (LT knee arhtroscopy x3, RT knee arthroscopy x2) - Immunization History Td Vaccination: Yes Immunization Up to Date: Yes - Psycho Social/Smoking Cessation Hx Smoking Status: No Smoking History: Current every day smoker Have you smoked in the past 12 months: Yes Number of Cigarettes Smoked Daily: 10 'Breaking Loose' booklet given: 01/04/19 Hx Alcohol Use: No Drug/Substance Use Hx: No Substance Use Type: Alcohol Hx Substance Use Treatment: No Discharge - Discharge Information Problems reviewed: Yes Clinical Impression/Diagnosis: Abrasion of head Qualifiers: Encounter type: initial encounter Qualified Code(s): S00.91XA - Abrasion of unspecified part of head, initial encounter Laceration of abdomen Qualifiers: Encounter type: initial encounter Qualified Code(s): S31.119A - Laceration without foreign body of abdominal wall, unspecified quadrant without penetration into peritoneal cavity, initial encounter Condition: Good Disposition: HOME - Admission No - Additional Discharge Information Prescription Drug Monitoring Program (I-STOP) results: I-STOP reviewed and no issues identified - Follow up/Referral Referrals: Edenilson Pacheco MD [Primary Care Provider] - - Patient Discharge Instructions Patient Printed Discharge Instructions: DI for Laceration Repair With Dermabond Additional Instructions: You were seen today for a superficial abrasion to your head and a laceration to your abdomen. Dermabond and steri-strips were used to close the abdominal wound. Bacitracin was placed on the head. Keep the areas clean and dry for the next several days. You can take over the counter Tylenol or Advil as needed for pain. Take as directed on the package insert. Do not exceed the recommended dosage. Follow up with your primary care doctor in the next week. You will need to call to make an appointment. Go to the nearest emergency department if your condition worsens or you feel like you need additional emergency evaluation. Watch for worsening pain, redness , purulent drainage, or other signs of infection. Print Language: LAO - Post Discharge Activity Work/Back to School Note: Back to Work
--- NOTE | 2019-08-12 12:05 | PDOC ---
Attending Attestation - Resident Resident Name: Kevin Schafer - ED Attending Attestation I have performed the following: I have examined & evaluated the patient, The case was reviewed & discussed with the resident, I agree w/resident's findings & plan, Exceptions are as noted - HPI HPI: 08/12/19 12:03 49 M presents to ED with injury to back of head and abdomen after a shelf fell on him. Pt states that he was putting up a shelf that fell onto his head. A bowl that was on the shelf also broke, cutting him on the L side of his abdomen. Pt denies LOC. Denies any BOOKER/N/V. Denies neck pain. - Physicial Exam PE: 08/12/19 12:04 "GENERAL: Awake, alert, and fully oriented, in no acute distress. HEAD: 1cm superficial laceration to occiput EYES: PERRLA, EOMI, sclera anicteric, conjunctiva clear ENT: Auricles normal inspection, hearing grossly normal, nares patent, oropharynx clear without exudates. Moist mucosa NECK: Nontender, no stepoffs, Normal ROM, supple, no lymphadenopathy, JVD, or masses LUNGS: Breath sounds equal, clear to auscultation bilaterally. No wheezes, and no crackles HEART: Regular rate and rhythm, normal S1 and S2, no murmurs, rubs or gallops ABDOMEN: Soft, nontender, normoactive bowel sounds. No guarding, no rebound. No masses EXTREMITIES: Normal range of motion, no edema. No clubbing or cyanosis. No cords, erythema, or tenderness NEUROLOGICAL: Cranial nerves II through XII intact. 5/5 strength and sensation in all extremities, Normal speech, normal gait, normal cerebellar function SKIN: 1cm laceration to L anterior abdomen - Medical Decision Making 08/12/19 12:05 49 M with 2 superficial lacerations after a shelf broke and fell on him. Pt without BOOKER/N/V or any other signs of significant head trauma. - Lac repair with dermabond Pt is well appearing, with normal vitals. Clinically stable for DC at this time. I discussed the physical exam findings, ancillary test results and final diagnoses with the patient. I answered all of the patient's questions. The patient was satisfied with the care received and felt comfortable with the discharge plan and treatment plan. The patient agrees to follow up with the primary care physician within 24-72 hours.
== END 2019-08-12 12:29 | disposition home or self-care (01) ==
LOC: FER 11:32
PROC: 0HQ7XZZ Repair Abdomen Skin, External Approach (ICD-10-PCS; principal; 2019-08-12)
CPT/HCPCS: 99282-25

== ENCOUNTER 2021-12-01 01:40 | Emergency (ER) | payer OTHER ==
[2021-12-01 02:05] VITALS: BP 139/75; PULSE 109; TEMP 98; BMI 30.4
== END 2021-12-01 02:25 | disposition home or self-care (01) ==
LOC: FER 01:40 → SUPCPDRO 01:40 → FER 02:25
DX: M54.2 Cervicalgia (principal)
CPT/HCPCS: 99283-25

== ENCOUNTER 2023-06-17 18:07 | Emergency (ER) | payer OTHER ==
[2023-06-17 18:29] VITALS: BP 117/79; PULSE 102; RESP 16; TEMP 98.4; BMI 24.3
== END 2023-06-17 19:30 | disposition home or self-care (01) ==
LOC: FER 18:07
DX: S51.812A Laceration without foreign body of left forearm, initial encounter (principal); W26.0XXA Contact with knife, initial encounter; Y28.1XXA Contact with knife, undetermined intent, initial encounter; Y93.89 Activity, other specified; Y92.009 Unspecified place in unspecified non-institutional (private) residence as the place of occurrence of the external cause
CPT/HCPCS: 99282-25